=== PATIENT | female | born 1995 | race Caucasian/White ===

== ENCOUNTER 2025-02-08 19:32 | Emergency (ER) | payer OTHER, SELFPAY ==
--- OUTSIDE RECORDS SUMMARY | 2012-12-15 04:00 | XMS_ITS | Continuity of Care Document ---
Author Organization [facility] Address [address] [place] [address] Phone Care Team Providers Care Director Mission Name Role Phone Nicolás Kothari DMD Unavailable Unavailable Allergies, Adverse Reactions, Alerts Substance Reaction Status Criticality No Known allergies Medications Medication Instructions Dosage Dose Quantity Effective Dates (start - stop) Status Indication Fill Status Comments Singulair 10 mg tablet take 1 tablet (10MG) by oral route every day in the evening 10 MG 1 tablet 3 - Active prednisone 10 mg tablet take 1 tablet (10MG) by oral route every day for 2 days then half tablet daily for 5 days and discontinue 10 MG 1 tablet 3 - Active Seasonique 0.15 mg-30 mcg (84)/10 mcg(7) tablets,3 month dose pack take 1 tablet by oral route every day 10 MG 1 tablet 3 - Active ProAir HFA 90 mcg/actuatio n Aerosol Inhaler inhale 2 puff by inhalation route every 4 - 6 hours as needed 10 MG 1 tablet 2 - Active Procedures Procedure Date Prophylaxis Child Topical Application Of Flouride 013 Advance Directives Directive Yes / No Effective Date File Name No Information Encounters Encounter Description Practice Location Reason(s) For Visit Diagnoses Date Provider Encounter Disposition [facility], [address], [place], [place], [address], [place] tel:[phone] [facility] Dental examination 3 Taye Monzon. [address], [place], [place], [address], [place]. tel:[phone] [facility]ly [facility], [address], [place], [place], [address], [place] tel:[phone] [facility] Sob (chief complaint) BOM (bilateral otitis media)Asthmat ic bronchitis 3 [facility] Kavya. [address] [place], [address], [place]. tel:[phone] [facility], [address], [place], [place], [address], [place] tel:[phone] [facility] go over ct of head (chief complaint) HeadacheHealt hcare maintenance 3 No Information [facility], [address], [place], [place], [address], [place] tel:[phone] [facility] c/o migraines (chief complaint) Worsening headaches 3 No Information [facility], [address], [place], [place], [address], [place] tel:[phone] [facility] check up and refills (chief complaint) No Information 3 [facility] [address] [place], [address], [place]. tel:[phone] [facility], [address], [place], [place], [address], [place] tel:[phone] [facility] Dental examination 3 No Information [facility], [address], [place], [place], [address], [place] tel:[phone] [facility] No Information 2 Danial Izquierdo. [address], [place], [address], [place]. tel:[phone] [facility], [address], [place], [place], [address], [place] tel:[phone] [facility] No Information 2 Danial Izquierdo. [address], [place], [address], [place]. tel:[phone] [facility], [address], [place], [place], [address], [place] tel:[phone] [facility] No Information 2 Renato Guzmán. [address], [place], [place], [address], [place]. tel:[phone] [facility], [address], [place], [place], [address], [place] tel:[phone] [facility] No Information 2 Renato Guzmán. [address], [place], [place], [address], [place]. tel:[phone] [facility], [address], [place], [place], [address], [place] tel:[phone] [facility] No Information 1 Dilley Advent. [address], [place], [place], [address], [place]. tel:[phone] [place] [address] [facility], [address], [place], [place], [address], [place] tel:[phone] [facility] No Information 0 1 Dilley Advent. [address], [place], [place], [address], [place]. tel:[phone] [facility], [address], [place], [place], [address], [place] tel:[phone] [facility] No Information 1 Dilley Advent. [address], [place], [place], [address], [place]. tel:[phone] [facility], [address], [place], [place], [address], [place] tel:[phone] [facility] No Information Sep-0 8- 1 Billy Advent. [address], [place], [place], [address], [place]. tel:[phone] [place] [address] [facility], [address], [place], [address], [place] tel:[phone] [facility] No Information 1 8 1 Billy Advent. [address], [place], [place], [address], [place]. tel:[phone] [place] [address] [facility], [address], [place], [place], [address], [place] tel:[phone] [facility] No Information 0 1 Dilley Advent. [address], [place], [place], [address], [place]. tel:[phone] [place] [address] & [facility], [address], [place], [address], [place] tel:[phone] [facility] No Information 0 -201 1 Billy Advent. [address], [place], [place], [address], [place]. tel:[phone] [place] [address] [facility], [address], [place], [address], [place] tel:[phone] [facility] No Information 1 Dilley Advent. [address], [place], [place], [address], [place]. tel:[phone] [place] [address] [facility], [address], [place], [address], [place] tel:[phone] [facility] No Information Apr-2 2201 1 Billy Advent. [address], [place], [place], [address], [place]. tel:[phone] [place] [address] & [facility], [address], [place], [place], [address], [place] tel:[phone] [facility] No Information 0 No Information [facility], [address], [place], [place], [address], tel:[phone] [facility] No Information 0 Billy Cui. [address], [place], [place], [address], [place]. tel:[phone] [facility], [address], [place], [place], [address], tel:[phone] [facility] No Information 0 No Information [facility], [address], [place], [place], [address], tel:[phone] [facility] No Information 0 Billy Cui. [address], [place], [place], [address], [place]. tel:[phone] [facility] [employer], [address], [place], [place], [address], [place] tel:[phone] [facility] No Information 0 Taye Monzon. [address], [place], [place], [address], [place]. tel:[phone] Family History Family Member Type Diagnosis Age At Onset Mother Problem (finding) Obesity Payers Payer name Insurance type Identifiers Authorization(s) Com dotty Velasquez CI yoni ID: [id number] Name: Coverage Status Eligibility Check on: UnknownRelationship to Subscriber: selfPayer Address: [address] [place] [address], [id number], [facility] Phone: [phone] Social History Type Description Quantity Date Captured Comments Sex Female Smoking Status No Information Current Gender Female (finding) Chief Complaint And Reason For Visit No Information Plan Of Treatment Date Type Action Status Referral Ordered: CT HEAD/BRAIN W/O DYE Appointment date/timeframe: 05/21/2012 ordered History Of Present Illness Encounter Date Complaint History Of Prese nt Illness Sob nausea/ prod cou gh with yellow secretions, chest congestion, burning feeling in chest. X's 1 week. mother DX with pneumonia. go over ct of head CT head krystin l.Headaches better with naproxen.No other complaints. c/o migraines states migraines always on left side of head,trauma 2wks ago. was hit in the head with a basketball,denies any LOC.No other motor or sensory deficits.Has frequent left sided temporal headaches,No visual disturbances. check up and refills See scanned note for this date as computer not up until 430p.m. Functional Status Date Description Comments No Information Instructions Date Instruction Additional Infor mation If severely SOB and meds not helping, to ER for evaluation and treatment. Related to Asthmatic bronchitis Beta agonist inhaler as prescrib ed Related to Asthmatic bronchitis Weaning dose of prednisone as pr escribed Related to Asthmatic bronchitis Assessments Type Assessment Date No Information
--- OUTSIDE RECORDS SUMMARY | 2025-02-08 19:38 | XMS_ITS | Encounter Summary ---
Author Organization [facility] Address [address] [place] [address] Care Team Providers Care Food Preparation Kitchen Aide Name Role Phone Gibson Lopez MD Primary Care Provider Reason for Visit * Reason Comments Med Refill Encounter Details Date Type Department Care Team (Late st Contact Info) Description 05/24/2024 Refill [facility] Family Medicine [address] [place] [phone] Gibson Lopez MD [address] [place], [place] [id number] Iron deficiency anemia, unspecified iron deficiency anemia type; Low vitamin D level Social History Tobacco Use Types Packs/Day Years Used Date Smoking Tobacco: Never Smokeless Tobacco: Never Alcohol Use Standard Drinks/Week Comments Yes 0 (1 standard drink = 0.6 oz pur e alcohol) occasionally PHQ-2 Answer Date Recorded Patient Health Questionnaire-2 Score 0 03/24/2023 Comments No Sex and Gender Information Value Date Recorded Sex Assigned at Not on file Legal Sex Female 11:28 PM CDT Gender Identity Not on file Sexual Orientation Not on file documented as of this encounter Miscellaneous Notes * Telephone Encounter - Di Navarro RN - 05/25/2024 11:40 AM CDT Awaiting clarification on Vit D dosage from pt; юлия msg sent and read. documented in this encounter Plan of Treatment Not on file documented as of this encounter Visit Diagnoses Diagnosis Iron deficiency anemia, unspecified iron deficiency anemia type Low vitamin D level documented in this encounter Care Teams Food Preparation Kitchen Aide Relationship Specialty Start Date End Date Gibson Lopez MD [address] [place] [address] PCP - General Pediatrics 04/05/24 documented as of this encounter
--- OUTSIDE RECORDS SUMMARY | 2025-02-08 19:38 | XMS_ITS | Encounter Summary ---
Author Organization [facility] Address [address] [place] [address] Care Team Providers Care Electro Optics Engineer Name Role Phone Gibson Lopez MD Primary Care Provider Encounter Details Date Type Department Care Team (Late st Contact Info) Description 11/08/2024 Orders Only [facility] Family Medicine [address] [place] [phone] Gibson Lopez MD [address] [place], [place] [id number] Adult ADHD; Mild intermittent asthma without complication Social History Tobacco Use Types Packs/Day Years [...] on file documented as of this encounter Plan of Treatment Not on file documented as of this encounter Visit Diagnoses Diagnosis Adult ADHD Attention deficit disorder with hyperactivity Mild intermittent asthma without complication documented in this encounter Care Teams Electro Optics Engineer Relationship Specialty Start Date End Date Gibson Lopez MD [address] [place], [place] [address] PCP - General Pediatrics 04/05/24 documented as of this encounter
--- OUTSIDE RECORDS SUMMARY | 2025-02-08 19:38 | XMS_ITS | Encounter Summary ---
Author Organization [facility] Address [address] [place] [address] Care Team Providers Care Electroneurodiagnostic Technologist Name Role Phone Gibson Lopez MD Primary Care Provider Encounter Details Date Type Department Care Team (Late st Contact Info) Description 03/05/2024 Orders Only [facility] Family Medicine [address] [place] [phone] Gibson Lopez MD [address] [place] [address] Social History Tobacco Use Types Packs/Day Years [...] documented as of this encounter Visit Diagnoses Not on filedocumented in this encounter Additional Health Concerns Infection Onset Date Last Indicated Resolved Time R/O COVID-19 04/05/2024 04/05/2024 04/05/2024 1:14 PM GAS LINE SERVICER Streptococcal disease (group A), Pharyngitis 04/05/2024 04/05/2024 04/19/2024 12:21 AM GAS LINE SERVICER documented as of this encounter Care Teams Electroneurodiagnostic Technologist Relationship Specialty Start Date End Date Gibson Lopez MD [address] [place] [id number] PCP - General Pediatrics 04/05/24 documented as of this encounter
--- OUTSIDE RECORDS SUMMARY | 2025-02-08 19:38 | XMS_ITS | Encounter Summary ---
Author Organization [facility] Address [address] [place] [address] Care Team Providers Care Umbrella Finisher Name Role Phone Gibson Lopez MD Primary Care Provider Encounter Details Date Type Department Care Team (Late st Contact Info) Description 07/08/2024 Orders Only [facility] Family Medicine [address] [place] [phone] Gibson Lopez MD [address] [place], [place] [address] Adult ADHD Social History Tobacco Use Types Packs/Day Years [...] Adult ADHD Attention deficit disorder with hyperactivity documented in this encounter Care Teams Umbrella Finisher Relationship Specialty Start Date End Date Gibson Lopez MD [address] [place], [place] [address] PCP - General Pediatrics 04/05/24 documented as of this encounter
--- OUTSIDE RECORDS SUMMARY | 2025-02-08 19:38 | XMS_ITS | Encounter Summary ---
Author Organization [facility] Address [address] [place] [address] Care Team Providers Care Loan Officer Name Role Phone Gibson Lopez MD Primary Care Provider Encounter Details Date Type Department Care Team (Late st Contact Info) Description 09/16/2024 Orders Only [facility] Family Medicine [address] [place] [phone] Gibson Lopez MD [address] [place], [place] [address] Adult ADHD Social History Tobacco Use Types [...] hyperactivity documented in this encounter Care Teams Loan Officer Relationship Specialty Start Date End Date Gibson Lopez MD [address] [place], [place] [address] PCP - General Pediatrics 04/05/24 documented as of this encounter
--- OUTSIDE RECORDS SUMMARY | 2025-02-08 19:38 | XMS_ITS | Encounter Summary ---
Author Organization [facility] Address [address] [place] [address] Care Team Providers Care Manager Delivery Name Role Phone Gibson Lopez MD Primary Care Provider Encounter Details Date Type Department Care Team (Late st Contact Info) Description 05/26/2024 Orders Only [facility] Family Medicine [address] [place] [phone] Gibson Lopez MD [address] [place], [place] [address] Hypovitaminosis D Social History Tobacco Use Types Packs/Day Years [...] as of this encounter Visit Diagnoses Diagnosis Hypovitaminosis D Unspecified vitamin D deficiency documented in this encounter Care Teams Manager Delivery Relationship Specialty Start Date End Date Gibson Lopez MD [address] [place], [place] [address] PCP - General Pediatrics 04/05/24 documented as of this encounter
--- OUTSIDE RECORDS SUMMARY | 2025-02-08 19:38 | XMS_ITS | Encounter Summary ---
Author Organization [facility] Address [address] [place] [address] Care Team Providers Care Needle Loom Operator Helper Name Role Phone Gibson Lopez MD Primary Care Provider Encounter Details Date Type Department Care Team (Late st Contact Info) Description 08/09/2016 Orders Only [facility] Family Medicine [address] [place] [address] Angeli Schwartz LPN Social History Tobacco Use Types Packs/Day Years Used Date Smoking Tobacco: Never Comments Unknown Sex and Gender Information Value Date Recorded [...] Date Last Indicated Resolved Time R/O COVID-19 04/27/2020 04/29/2020 04/27/2020 2:06 PM INDUSTRIAL COMMERCIAL GROUNDSKEEPER R/O COVID-19 11/01/2020 11/01/2020 11/17/2020 12:0 2 PM CDT R/O COVID-19 12/01/2020 12/01/2020 12/02/2020 12:1 7 PM CDT R/O COVID-19 12/08/2020 12/08/2020 12/08/2020 1:15 PM CDT R/O COVID-19 12/15/2020 12/15/2020 12/15/2020 1:35 PM CDT R/O COVID-19 12/22/2020 01/05/2021 01/05/2021 4:45 PM INDUSTRIAL COMMERCIAL GROUNDSKEEPER PreProcedure Screening COVID-19 12/29/2020 12/30/2020 1:02 PM CDT R/O COVID-19 01/11/2021 01/11/2021 01/11/2021 2:55 PM INDUSTRIAL COMMERCIAL GROUNDSKEEPER R/O COVID-19 01/16/2021 01/16/2021 01/16/2021 8:22 PM INDUSTRIAL COMMERCIAL GROUNDSKEEPER R/O COVID-19 01/25/2021 01/25/2021 01/25/2021 6:28 PM INDUSTRIAL COMMERCIAL GROUNDSKEEPER R/O COVID-19 02/01/2021 02/01/2021 02/01/2021 1:27 PM INDUSTRIAL COMMERCIAL GROUNDSKEEPER R/O COVID-19 02/08/2021 02/08/2021 02/08/2021 12:2 1 PM INDUSTRIAL COMMERCIAL GROUNDSKEEPER R/O COVID-19 02/13/2021 02/13/2021 02/13/2021 2:21 PM INDUSTRIAL COMMERCIAL GROUNDSKEEPER R/O COVID-19 02/21/2021 02/21/2021 02/21/2021 11:4 3 AM INDUSTRIAL COMMERCIAL GROUNDSKEEPER COVID-19 02/21/2021 02/21/2021 05/22/2021 12:2 1 AM CDT R/O COVID-19 05/24/2021 05/24/2021 05/24/2021 7:56 PM CDT R/O COVID-19 05/31/2021 05/31/2021 05/31/2021 8:43 PM CDT R/O COVID-19 06/07/2021 06/07/2021 06/07/2021 9:00 PM CDT R/O COVID-19 06/14/2021 06/14/2021 06/14/2021 5:57 PM CDT R/O COVID-19 06/24/2021 06/24/2021 06/25/2021 1:22 AM CDT R/O COVID-19 06/30/2021 06/30/2021 06/30/2021 5:45 PM CDT R/O COVID-19 07/03/2021 07/07/2021 07/08/2021 1:40 AM CDT R/O COVID-19 07/12/2021 07/12/2021 07/12/2021 6:48 PM CDT R/O COVID-19 07/19/2021 07/19/2021 07/19/2021 6:45 PM CDT R/O COVID-19 07/25/2021 07/25/2021 07/25/2021 11:4 1 PM CDT R/O COVID-19 07/29/2021 07/29/2021 07/29/2021 7:13 PM CDT COVID-19 07/29/2021 07/29/2021 10/27/2021 12:2 1 AM CDT COVID-19 12/19/2022 12/19/2022 03/19/2023 12:2 1 AM INDUSTRIAL COMMERCIAL GROUNDSKEEPER R/O COVID-19 04/05/2024 04/05/2024 04/05/2024 1:14 PM INDUSTRIAL COMMERCIAL GROUNDSKEEPER Streptococcal disease (group A), Pharyngitis 04/05/2024 04/05/2024 04/19/2024 12:21 AM INDUSTRIAL COMMERCIAL GROUNDSKEEPER documented as of this encounter Care Teams Needle Loom Operator Helper Relationship Specialty Start Date End Date Gibson Lopez MD [address] [place] [address] PCP - General Pediatrics 04/05/24 documented as of this encounter
--- OUTSIDE RECORDS SUMMARY | 2025-02-08 19:38 | XMS_ITS | Encounter Summary ---
Author Organization [facility] Address [address] [place] [address] Care Team Providers Care Beach Lifeguard Name Role Phone Gibson Lopez MD Primary Care Provider Reason for Referral * Medication Prior Authorization - Closed Specialty Diagnoses / Procedures Referred By Contac t Referred To Contact Diagnoses PTSD (post-traumatic stress disorder) Gibson Lopez MD [address] [place] [address] Phone: tel: fax: Referral ID Status Reason Start Date Expiration Date Visits Re quested Visits Authorized [id number] Closed 1 1 Encounter Details Date Type Department Care Team (Late st Contact Info) Description 12/15/2024 Orders Only [facility] Family Medicine [address] [place] [phone] Gibson Lopez MD [address] [place] [address] Adult ADHD; PTSD (post-traumatic stress disorder) Social History Tobacco Use Types Packs/Day Years [...] Adult ADHD Attention deficit disorder with hyperactivity PTSD (post-traumatic stress disorder) Posttraumatic stress disorder documented in this encounter Care Teams Beach Lifeguard Relationship Specialty Start Date End Date Gibson Lopez MD [address] [place] [address] PCP - General Pediatrics 04/05/24 documented as of this encounter
--- OUTSIDE RECORDS SUMMARY | 2025-02-08 19:38 | XMS_ITS | Encounter Summary ---
Author Organization [facility] Address [address] [place] [address] Care Team Providers Care Hat Renovator Name Role Phone Gibson Lopez MD Primary Care Provider Encounter Details Date Type Department Care Team (Late st Contact Info) Description 06/17/2024 Orders Only [facility] Family Medicine [address] [place] [phone] Gibson Lopez MD [address] [place], [place] [phone] Vertigo (Primary Dx); Adult ADHD Social History Tobacco Use Types [...] as of this encounter Visit Diagnoses Diagnosis Vertigo- Primary Dizziness and giddiness Adult ADHD Attention deficit disorder with hyperactivity documented in this encounter Care Teams Hat Renovator Relationship Specialty Start Date End Date Gibson Lopez MD [address] [place] [address] PCP - General Pediatrics 04/05/24 documented as of this encounter
--- OUTSIDE RECORDS SUMMARY | 2025-02-08 19:38 | XMS_ITS | Encounter Summary ---
Author Organization [facility] althcare Address [address] [place] [address] Care Team Providers Care Roving Tester Laboratory Name Role Phone Gibson Lopez MD Primary Care Provider Encounter Details Date Type Department Care Team (Late st Contact Info) Description 02/19/2024 Orders Only [facility] Family Medicine [address] [place] [address] Gibson Lopez MD [address] [place] [address] Other fatigue (Primary Dx); Iron deficiency anemia, unspecified iron deficiency anemia type; Low vitamin D level; Anxiety Social History Tobacco Use Types Packs/Day Years [...] as of this encounter Plan of Treatment Scheduled Orders Name Type Priority Associated Diagnoses Orde r Schedule Vitamin D 25 Hydroxy Lab Routine Iron deficiency anemia, unspecified iron deficiency anemia type Low vitamin D level 1 Occurrences starting 02/24/2024 until 02/23/2025 documented as of this encounter Results * Ferritin (04/09/2024 10:48 AM COOPERAGE SHOP SUPERVISOR) Ferritin 47 11 - 307 ng/mL 04/09/2024 7:50 PM COOPERAGE SHOP SUPERVISOR [facility] Blood Venous blood specimen / Unknown Venipuncture / Unknown 04/09/2024 10:48 AM COOPERAGE SHOP SUPERVISOR 04/09/2024 10:48 AM COOPERAGE SHOP SUPERVISOR Gibson Lopez MD LAB BLOOD ORDERABLES F inal Result [address] [address] * (ABNORMAL) Vitamin D 25 Hydroxy (02/23/2024 8:27 AM COOPERAGE SHOP SUPERVISOR) Vitamin D 25-Hydroxy 19.9(L) 30.0 - 100.0 ng/mL 02/23/2024 8:03 PM [facility] Blood Venous blood specimen / Unknown Venipuncture / Unknown 02/23/2024 8:27 AM COOPERAGE SHOP SUPERVISOR 02/23/2024 8:27 AM COOPERAGE SHOP SUPERVISOR Gibson Lopez MD LAB BLOOD ORDERABLES F inal Result [address] [address] * Ferritin (02/23/2024 8:27 AM COOPERAGE SHOP SUPERVISOR) Ferritin 19 11 - 307 ng/mL 02/23/2024 8:16 PM COOPERAGE SHOP SUPERVISOR [facility] Blood Venous blood specimen / Unknown Venipuncture / Unknown 02/23/2024 8:27 AM COOPERAGE SHOP SUPERVISOR 02/23/2024 8:27 AM COOPERAGE SHOP SUPERVISOR Gibson Lopez MD LAB BLOOD ORDERABLES F inal Result [address] [address] * TSH Reflex to FT4 (02/23/2024 8:27 AM COOPERAGE SHOP SUPERVISOR) TSH 1.980 0.358 - 3.740 uIU/mL 02/23/2024 11:24 AM COOPERAGE SHOP SUPERVISOR [facility] Blood Venous blood specimen / Unknown Venipuncture / Unknown 02/23/2024 8:27 AM COOPERAGE SHOP SUPERVISOR 02/23/2024 8:27 AM COOPERAGE SHOP SUPERVISOR Gibson Lopez MD LAB BLOOD ORDERABLES F inal Result [facility] [address] [place] [address], * Vitamin B12 (02/23/2024 8:27 AM COOPERAGE SHOP SUPERVISOR) Pathologist [facility] Vitamin B12 633 180 - 914 pg/mL 02/23/2024 8:20 PM [facility] Blood Venous blood specimen / Unknown Venipuncture / Unknown 02/23/2024 8:27 AM COOPERAGE SHOP SUPERVISOR 02/23/2024 8:27 AM COOPERAGE SHOP SUPERVISOR Gibson Lopez MD LAB BLOOD ORDERABLES F inal Result Performing Organization Address City/[facility]/ZIP Co de Phone Number [facility] [address] [place] [address] * CRP (02/23/2024 8:27 AM COOPERAGE SHOP SUPERVISOR) Pathologist [facility] C Reactive Prot <5.0 <5.0 mg/L 7:15 PM [facility] Blood Venous blood specimen / Unknown Venipuncture / Unknown 02/23/2024 8:27 AM COOPERAGE SHOP SUPERVISOR 02/23/2024 8:27 AM COOPERAGE SHOP SUPERVISOR Gibson Lopez MD LAB BLOOD ORDERABLES F inal Result [address] [address] documented in this encounter Visit Diagnoses Diagnosis Other fatigue- Primary Iron deficiency anemia, unspecified iron deficiency anemia type Low vitamin D level Anxiety Anxiety state, unspecified documented in this encounter Additional Health Concerns Infection Onset Date Last Indicated Resolved Time R/O COVID-19 04/05/2024 04/05/2024 04/05/2024 1:14 PM COOPERAGE SHOP SUPERVISOR Streptococcal disease (group A), Pharyngitis 04/05/2024 04/05/2024 04/19/2024 12:21 AM COOPERAGE SHOP SUPERVISOR documented as of this encounter Care Teams Roving Tester Laboratory Relationship Specialty Start Date End Date Gibson Lopez MD [address] [place] [address] PCP - General Pediatrics 04/05/24 documented as of this encounter
--- OUTSIDE RECORDS SUMMARY | 2025-02-08 19:38 | XMS_ITS | Encounter Summary ---
Author Organization [facility] Address [address] [place] [address] Care Team Providers Care Client Analyst Name Role Phone Unavailable Primary Care Provider Unavailabl e Encounter Details Date Type Department Care Team (Late st Contact Info) Description 01/25/2025 Results Follow-Up [facility] [address] [place] [address] Naty Quintana FNP-C [address] [place] [address] URINE CULTURE Social History Tobacco Use Types Packs/Day Years Used Date Smoking Tobacco: Never Passive Smoke Exposure: Never Smokeless Tobacco: Never Comments Unknown Sex and Gender Information Value Date Recorded Sex Assigned at Female 10/08/2024 1:23 PM CDT Legal Sex Female 11:20 PM CDT Gender Identity Not on file Sexual Orientation Not on file documented as of this encounter Miscellaneous Notes * Result Encounter Note - Dariela Gutierres RT - 01/27/2025 7:48 AM CARGO ROUTER PT notified by phone O ROUTER * Result Encounter Note - Naty Quintana FNP-C - 01/26/2025 8:16 AM CST Patients urine culture came back with no primary bacteria present, urogenital harsh present, which is normal. Recommend follow up if symptoms persist or worsen. O ROUTER documented in this encounter Plan of Treatment Not on file documented as of this encounter Visit Diagnoses Not on filedocumented in this encounter
--- OUTSIDE RECORDS SUMMARY | 2025-02-08 19:38 | XMS_ITS | Clinical Summary ---
Author Organization [facility] Address [address] [place] [address] Care Team Providers Care Rn Visiting Name Role Phone Unavailable Primary Care Provider Unavailabl e Allergies No known active allergies Medications albuterol 108 (90 Base) MCG/ACT inhaler INHALE 2 PUFFS EVERY 4 HOURS NEEDED FOR WHEEZING OR SHORTNESS OF BREATH 4 Active budesonide-form oterol (SYMBICORT) 160-4.5 MCG/ACT inhaler Inhale 2 puffs by mouth 4 Active Cholecalciferol 10 MCG (400 UNIT) CAPS Take 1 tablet by mouth Nightly 5 Active Active Problems Problem Noted Date Diagnosed Date Adult ADHD 08/26/2024 Syncope 04/09/2024 PTSD (post-traumatic stress disorder) 11/26/2023 Anxiety 08/18/2023 Obesity 05/22/2023 Acne vulgaris 08/16/2016 History of gestational hypertension 02/10/2015 Asthma 05/12/2014 Resolved Problems Problem Noted Date Diagnosed Date Resolved Date Acute low back pain 08/26/2024 09/27/19 Acute pain of left knee 08/26/2024 08/0 04/2024 Sebaceous cyst 11/26/2023 09/26/2024 Supervision of normal 12/30/2022 09/26/2024 Encounters Date Type Department Care Team Description 01/25/2025 Results Follow-Up [facility] [address] [place] [phone] Naty Quintana FNP-C URINE CULTURE 01/22/2025 2:45 PM LIME TRIMMER Lab/X-Ray Only [facility] [address] [place] [phone] Georgina Nolasco PA Urinary frequency (Primary Dx) 01/22/2025 2:30 PM LIME TRIMMER Office Visit [facility] [address] [place] [address] Georgina Nolasco PA Urinary frequency (Primary Dx); Depression screening negative from Last 3 Months Immunizations Immunization Administration Dates Next Due DTaP 09/25/1998, 5,1994,1994 Hepatitis B, Ped/Adolescent 1994, 5,1994 HiB 1994,1994,1994 Influenza Quadrivalent, Pres ervative Free 03/24/2023 Influenza Split Virus 11/05/2024 Influenza Split Virus Preser vative Free 11/17/2017 Influenza, Quadrivalent 12/01/2018 MMR 09/25/1998,07/24/1995 OPV 09/25/1998, 5,1994,1994 Tdap 12/10/2022,08/18/2017 Social History Tobacco Use Types Packs/Day Years Used Date Smoking Tobacco: Never Passive Smoke Exposure: Never Smokeless Tobacco: Never Tobacco Cessation:Counseling Given: Yes Comments Unknown Sex and Gender Information Value Date Recorded Sex Assigned at Female 10/08/2024 1:23 PM CDT Legal Sex Female 11:20 PM CDT Gender Identity Not on file Sexual Orientation Not on file Last Filed Vital Signs Vital Sign Reading Time Taken Comments Blood Pressure 127/83 01/22/2025 2:38 PM LIME TRIMMER Pulse 80 01/22/2025 2:38 PM LIME TRIMMER Temperature 36.4 C (97.5 F) 01/22/2025 2:38 PM LIME TRIMMER Respiratory Rate 18 01/22/2025 2:38 PM LIME TRIMMER Oxygen Saturation 98% 01/22/2025 2:38 PM LIME TRIMMER Inhaled Oxygen Concentration - - Weight 72.6 kg (160 lb 1.6 oz) 01/22/2025 2:38 P M LIME TRIMMER Height 160 cm (5' 3) 01/22/2025 2:38 PM LIME TRIMMER Body Mass Index 28.36 01/22/2025 2:38 PM LIME TRIMMER Plan of Treatment Health Maintenance Due Date Last Done Comments HIV Screening 1994 Hepatitis C Screening ages 18 to 79 once 1994 Varicella Vaccine (1 of 2 - 13+ 2-dose series) 2007 HPV VACCINES (1 - 3-dose series) 2009 BMI Above/Below Normal Parameters 2012 Pneumococcal Vaccine: Peds to 50 & At-Risk Patients (1 of 2 - PCV) 2013 CERVICAL CANCER SCREENING 2015 YEARLY WELLNESS EXAM 08/13/2024 08/14/2023, 10/23/2020, 09/30/2019, Additional history exists COVID-19 Immunization () 10/25/2024 DEPRESSION SCREENING 01/22/2026 01/22/2025 ADULT TETANUS 12/10/2032 12/10/2022, 08/18/2017 Zoster Vaccine (Recombinant Vaccine) (1 of 2) 2044 HEPATITIS B VACCINES Completed 1994, 1994, 1994 HIB VACCINES Aged Out 1994, 06/25, 1994 No longer eligible based on patient's age to complete this topic MMR VACCINES Completed 09/25/1998, 07/24/1995 Influenza Vaccine Completed 11/05/2024, , 12/01/2018, Additional history exists HEPATITIS A VACCINES Aged Out No long er eligible based on patient's age to complete this topic IPV VACCINES Aged Out No longer eligi ble based on patient's age to complete this topic MENINGOCOCCAL VACCINE Aged Out No jimmie hernandez eligible based on patient's age to complete this topic Meningococcal B Vaccine Aged Out No l onger eligible based on patient's age to complete this topic ROTAVIRUS VACCINES Aged Out No longer eligible based on patient's age to complete this topic Procedures Procedure Name Priority Date/Time Associated Diagnosis Comments POCT URINALYSIS DIPSTICK (AUTOMATED) Routine 01/22/2025 2:55 PM LIME TRIMMER Urinary frequency URINE CULTURE Routine 01/22/2025 2:43 PM LIME TRIMMER Urinary frequency from Last 3 Months Results * POCT URINALYSIS DIPSTICK (AUTOMATED) (01/22/2025 2:55 PM LIME TRIMMER) Leukocyte Esterase UA Negative cell/hpf [facility] Nitrite UA Negative mg/dL [facility] Urobilinogen UA 0.2 EU/dL [facility] Protein UA Negative mg/dL [facility] pH UA 7.0 pH [facility] Blood UA Negative Negative, Trace, Small, Moderate, 15 mg/dL (1+), 40 mg/dL (2+), 80 mg d/L (3+), Small (1+), Moderate (2+), Large (3+) mg/dL [facility] Specific [place] UA 1.025 [facility] Ketones UA Negative mg/dL [facility] Bilirubin UA Negative Negative, Small, Moderate, Large mg/dL [facility] Glucose UA Negative mg/dL [facility] Color Fluid Yellow [facility] Clarity Fluid Turbid [facility] 01/22/2025 2:55 PM LIME TRIMMER Georgina RAMOS POINT OF CARE TEST ORDERABLES Fi nal Result Performing Organization Address City/[facility] [address]/ZIP Co de Phone Number [facility] [address] [place] [address], [facility] * URINE CULTURE (01/22/2025 2:43 PM LIME TRIMMER) Specimen Type URINE [facility] Special Handling NONE [facility] Culture Result 10,000 TO <100,000 COL/ML NORMAL UROGENITAL SANTOS [facility] Status 01/25/2025 FINAL [facility] Urine URINE SPECIMEN / Unknown 01/22/2025 2:43 PM LIME TRIMMER 01/23/2025 11:25 AM LIME TRIMMER Georgina RAMOS URINE ORDERABLES Final Result [facility] [address] [place], [place] [address] [phone] from Last 3 Months Insurance [facility]
--- OUTSIDE RECORDS SUMMARY | 2025-02-08 19:38 | XMS_ITS | Encounter Summary ---
Author Organization [facility]care Address [address] [place] [address] Care Team Providers Care Sound Effects Person Name Role Phone Gibson Lopez MD Primary Care Provider Encounter Details Date Type Department Care Team (Late st Contact Info) Description 08/13/2024 Orders Only [facility] Family Medicine [address] [place] [phone] Gibson Lopez MD [address] [place], [place] [phone] Adult ADHD Social History Tobacco Use Types [...] hyperactivity documented in this encounter Care Teams Sound Effects Person Relationship Specialty Start Date End Date Gibson Lopez MD [address] [place], [place] [address] PCP - General Pediatrics 04/05/24 documented as of this encounter
--- OUTSIDE RECORDS SUMMARY | 2025-02-08 19:39 | XMS_ITS | Encounter Summary ---
Author Organization [facility] al[facility]care Address [address] [place] [address] Care Team Providers Care Magnet Maker Name Role Phone Gibson Lopez MD Primary Care Provider Encounter Details Date Type Department Care Team (Late st Contact Info) Description 07/03/2021 Orders Only [facility] [address] [place] [address] Shelia Rosa, CABIN SUPERVISOR [address] [place] [address] Screening for viral disease (Primary Dx) Social History Tobacco Use Types Packs/Day Years Used Date Smoking Tobacco: Never Smokeless Tobacco: Never Alcohol Use Standard Drinks/Week Comments Yes 0 (1 standard drink = 0.6 oz pur e alcohol) occasionally Comments No Sex and Gender Information Value Date Recorded Sex Assigned at Not on file Legal Sex Female 11:28 PM CDT Gender Identity Not on file Sexual Orientation Not on file documented as of this encounter Plan of Treatment Not on file documented as of this encounter Results * [facility] 2019 NOVEL Coronavirus SARS-Cov-2 by NAAT (16 Hour, In-House) (07/12/2021 7:49 AM CDT) SARS-CoV-2 by NAAT Negative Negative 07/12/2021 6:48 PM CDT [facility] Swab (specimen) Both anterior nares / Unknown Non-blood Collection / Unknown 07/12/2021 7:49 AM CDT 07/12/2021 1:10 PM CDT [facility] - 07/12/2021 6:48 PM CDT This sample has been tested using [employer] [place] NAAT and has been authorized by FDA under an Emergency Use Authorization (EUA). This test is only authorized for the duration of the declaration that circumstances exist justifying the authorization of the emergency use of in vitro diagnostic tests for detection of SARS-CoV-2 virus and/or diagnosis of COVID-19 infection under section 564 (b) (1) of the Act, 21 U.S.C. 360bbb-3(b) (1), unless the authorization is terminated or revoked sooner. When diagnostic testing is negative, the possibility of a false negative result should be considered in the context of a patient's recent exposures and the presence of clinical signs and symptoms consistent with COVID-19. An individual without symptoms of COVID-19 and who is not shedding SARS-CoV-2 virus would expect to have a negative (not detected) result in this assay. us Shelia Rosa NP LAB MICROBIOLOGY - GENERA L ORDERABLES Final Result [address] [address] * [facility] 2019 NOVEL Coronavirus SARS-Cov-2 by NAAT (16 Hour, In-House) (07/07/2021 10:10 AM CDT) Pathologist [facility] SARS-CoV-2 by NAAT Negative Negative 07/08/2021 1:40 AM CDT [facility] Swab (specimen) Both anterior nares / Unknown Non-blood Collection / Unknown 07/07/2021 10:10 AM CDT 07/07/2021 3:58 PM CDT [facility] - 07/08/2021 1:40 AM CDT This sample has been tested using [employer] [place] NAAT and has been authorized by FDA under an Emergency Use Authorization (EUA). This test is only authorized for the duration of the declaration that circumstances exist justifying the authorization of the emergency use of in vitro diagnostic tests for detection of SARS-CoV-2 virus and/or diagnosis of COVID-19 infection under section 564 (b) (1) of the Act, 21 U.S.C. 360bbb-3(b) (1), unless the authorization is terminated or revoked sooner. When diagnostic testing is negative, the possibility of a false negative result should be considered in the context of a patient's recent exposures and the presence of clinical signs and symptoms consistent with COVID-19. An individual without symptoms of COVID-19 and who is not shedding SARS-CoV-2 virus would expect to have a negative (not detected) result in this assay. us Shelia Rosa NP LAB MICROBIOLOGY - [facility] L ORDERABLES Final Result Performing Organization Address City/State/[facility] [place] [address] documented in this encounter Visit Diagnoses Diagnosis Screening for viral disease- Primary Special screening examination for unspecified viral disease documented in this encounter Additional Health Concerns Infection Onset Date Last Indicated Resolved Time R/O COVID-19 07/03/2021 07/07/2021 07/08/2021 1:40 AM CDT R/O COVID-19 07/12/2021 07/12/2021 07/12/2021 6:48 PM CDT R/O COVID-19 07/19/2021 07/19/2021 07/19/2021 6:45 PM CDT R/O COVID-19 07/25/2021 07/25/2021 07/25/2021 11:4 1 PM CDT R/O COVID-19 07/29/2021 07/29/2021 07/29/2021 7:13 PM CDT COVID-19 07/29/2021 07/29/2021 10/27/2021 12:2 1 AM CDT COVID-19 12/19/2022 12/19/2022 03/19/2023 12:2 1 AM BLACK BELT R/O COVID-19 04/05/2024 04/05/2024 04/05/2024 1:14 PM BLACK BELT Streptococcal disease (group A), Pharyngitis 04/05/2024 04/05/2024 04/19/2024 12:21 AM BLACK BELT documented as of this encounter Care Teams Magnet Maker Relationship Specialty Start Date End Date Gibson Lopez MD [address] [place] [address] PCP - General Pediatrics 04/05/24 documented as of this encounter
--- OUTSIDE RECORDS SUMMARY | 2025-02-08 19:39 | XMS_ITS | Encounter Summary ---
Author Organization [facility]care Address [address] [place] [address] Care Team Providers Care Harbormaster Name Role Phone Gibson Lopez MD Primary Care Provider Encounter Details Date Type Department Care Team (Late st Contact Info) Description 01/11/2021 Orders Only [facility] Mobile [address] [place] [address] Nhan Orellana, RACHEL [address] [place] [address] Screening for viral disease (Primary Dx) Social [...] as of this encounter Results * Employee [employer] 2019 NOVEL Coronavirus SARS-Cov-2 by NAAT (16 Hour, In-House) (01/16/2021 7:50 AM WOMEN'S LACROSSE COACH) SARS-CoV-2 by NAAT Negative Negative 01/16/2021 8:22 PM WOMEN'S LACROSSE COACH [facility] Swab (specimen) Both anterior nares / Unknown Non-blood Collection / Unknown 01/16/2021 7:50 AM WOMEN'S LACROSSE COACH 01/16/2021 10:55 AM WOMEN'S LACROSSE COACH [facility] - 01/16/2021 8:22 PM WOMEN'S LACROSSE COACH This sample has been tested using [employer] Get Appro[employer] NAAT and has been authorized by FDA [...] negative (not detected) result in this assay. Nhan RAMOS LAB MICROBIOLOGY - GENERAL [place] [address] * Employee [employer] 2019 NOVEL Coronavirus SARS-Cov-2 by NAAT (16 Hour, In-House) (01/11/2021 7:34 AM WOMEN'S LACROSSE COACH) [facility] SARS-CoV-2 by NAAT Negative Negative 01/11/2021 2:55 PM [facility] Swab (specimen) Both anterior nares / Unknown Non-blood Collection / Unknown 01/11/2021 7:34 AM WOMEN'S LACROSSE COACH 01/11/2021 9:08 AM [facility] - 01/11/2021 2:55 PM [facility] This sample has been tested using [employer] To Get Approved [employer] [place] NAAT and has been authorized by FDA [...] (not detected) result in this assay. us Nhan RAMOS LAB MICROBIOLOGY - GENERAL ORDERABLES Final Result Performing Organization Address City/State/[facility] Co de Phone Number [address] [address] documented in this encounter Visit Diagnoses Diagnosis Screening for viral disease- Primary Special screening examination for unspecified viral disease documented in this encounter Additional Health Concerns Infection Onset Date Last Indicated Resolved Time R/O COVID-19 01/11/2021 01/11/2021 01/11/2021 2:55 PM WOMEN'S LACROSSE COACH R/O COVID-19 01/16/2021 01/16/2021 01/16/2021 8:22 PM WOMEN'S LACROSSE COACH R/O COVID-19 01/25/2021 01/25/2021 01/25/2021 6:28 PM WOMEN'S LACROSSE COACH R/O COVID-19 02/01/2021 02/01/2021 02/01/2021 1:27 PM WOMEN'S LACROSSE COACH R/O COVID-19 02/08/2021 02/08/2021 02/08/2021 12:2 1 PM WOMEN'S LACROSSE COACH R/O COVID-19 02/13/2021 02/13/2021 02/13/2021 2:21 PM WOMEN'S LACROSSE COACH R/O COVID-19 02/21/2021 02/21/2021 02/21/2021 11:4 3 AM WOMEN'S LACROSSE COACH COVID-19 02/21/2021 02/21/2021 05/22/2021 12:2 1 AM [...] COVID-19 12/19/2022 12/19/2022 03/19/2023 12:2 1 AM WOMEN'S LACROSSE COACH R/O COVID-19 04/05/2024 04/05/2024 04/05/2024 1:14 PM WOMEN'S LACROSSE COACH Streptococcal disease (group A), Pharyngitis 04/05/2024 04/05/2024 04/19/2024 12:21 AM WOMEN'S LACROSSE COACH documented as of this encounter Care Teams Harbormaster Relationship Specialty Start Date End Date Gibson Lopez MD [address] [place] [address] PCP - General Pediatrics 04/05/24 documented as of this encounter
--- OUTSIDE RECORDS SUMMARY | 2025-02-08 19:39 | XMS_ITS | Encounter Summary ---
Author Organization [facility]care Address [address] [place] [address] Care Team Providers Care Information Services Manager Name Role Phone Gibson Lopez MD Primary Care Provider Encounter Details Date Type Department Care Team (Late st Contact Info) Description 09/08/2020 Orders Only [facility] Internal Medicine and Pediatrics [address] [place] [phone] Gibson Lopez MD [address] [place] [address] Anxiety (Primary Dx) Social History Tobacco Use Types [...] as of this encounter Visit Diagnoses Diagnosis Anxiety- Primary Anxiety state, unspecified documented in this encounter Additional Health Concerns Infection Onset Date Last Indicated Resolved Time R/O COVID-19 11/01/2020 11/01/2020 11/17/2020 12:0 2 PM CDT R/O COVID-19 12/01/2020 12/01/2020 12/02/2020 12:1 7 PM CDT R/O COVID-19 12/08/2020 12/08/2020 12/08/2020 1:15 PM CDT R/O COVID-19 12/15/2020 12/15/2020 12/15/2020 1:35 PM CDT R/O COVID-19 12/22/2020 01/05/2021 01/05/2021 4:45 PM RAILROAD CAR INSPECTOR PreProcedure Screening COVID-19 12/29/2020 12/30/2020 1:02 PM CDT R/O COVID-19 01/11/2021 01/11/2021 01/11/2021 2:55 PM RAILROAD CAR INSPECTOR R/O COVID-19 01/16/2021 01/16/2021 01/16/2021 8:22 PM RAILROAD CAR INSPECTOR R/O COVID-19 01/25/2021 01/25/2021 01/25/2021 6:28 PM RAILROAD CAR INSPECTOR R/O COVID-19 02/01/2021 02/01/2021 02/01/2021 1:27 PM RAILROAD CAR INSPECTOR R/O COVID-19 02/08/2021 02/08/2021 02/08/2021 12:2 1 PM RAILROAD CAR INSPECTOR R/O COVID-19 02/13/2021 02/13/2021 02/13/2021 2:21 PM RAILROAD CAR INSPECTOR R/O COVID-19 02/21/2021 02/21/2021 02/21/2021 11:4 3 AM RAILROAD CAR INSPECTOR COVID-19 02/21/2021 02/21/2021 05/22/2021 12:2 1 AM [...] COVID-19 12/19/2022 12/19/2022 03/19/2023 12:2 1 AM RAILROAD CAR INSPECTOR R/O COVID-19 04/05/2024 04/05/2024 04/05/2024 1:14 PM RAILROAD CAR INSPECTOR Streptococcal disease (group A), Pharyngitis 04/05/2024 04/05/2024 04/19/2024 12:21 AM RAILROAD CAR INSPECTOR documented as of this encounter Care Teams Information Services Manager Relationship Specialty Start Date End Date Gibson Lopez MD [address] [place] [address] PCP - General Pediatrics 04/05/24 documented as of this encounter
--- OUTSIDE RECORDS SUMMARY | 2025-02-08 19:39 | XMS_ITS | Encounter Summary ---
Author Organization [facility] Address [address] [place] [address] Care Team Providers Care Cable Worker Helper Name Role Phone Gibson Lopez MD Primary Care Provider Encounter Details Date Type Department Care Team (Late st Contact Info) Description 05/24/2021 Orders Only [facility] Mobile [address] [place] [phone] Shelia Rosa, [employer] FIELD COORDINATOR [address] [place] [address] Screening for viral disease (Primary Dx) Social [...] as of this encounter Results * Employee [facility] 2019 NOVEL Coronavirus SARS-Cov-2 by NAAT (16 Hour, In-House) (06/07/2021 11:25 AM CDT) SARS-CoV-2 by NAAT Negative Negative 06/07/2021 9:00 PM CDT [facility] Swab (specimen) Both anterior nares / Unknown Non-blood Collection / Unknown 06/07/2021 11:25 AM CDT 06/07/2021 1:36 PM CDT [facility] - 06/07/2021 9:00 PM CDT This sample has been tested using [employer] [place] NAAT and has been authorized by FDA [...] MICROBIOLOGY - GENERA L ORDERABLES Final Result [address] [address] * Employee [facility] 2019 NOVEL Coronavirus SARS-Cov-2 by NAAT (16 Hour, In-House) (05/31/2021 11:03 AM CDT) Pathologist [facility] SARS-CoV-2 by NAAT Negative Negative 05/31/2021 8:43 PM CDT [facility] Swab (specimen) Both anterior nares / Unknown Non-blood Collection / Unknown 05/31/2021 11:03 AM CDT 05/31/2021 1:03 PM CDT [facility] - 05/31/2021 8:43 PM CDT This sample has been tested using [employer] [place] NAAT and has been authorized by FDA [...] MICROBIOLOGY - GENERA [place] [address] * Employee [facility] 2019 NOVEL Coronavirus SARS-Cov-2 by NAAT (16 Hour, In-House) (05/24/2021 1:36 PM CDT) SARS-CoV-2 by NAAT Negative Negative 05/24/2021 7:56 PM CDT [facility] Swab (specimen) Both anterior nares / Unknown Non-blood Collection / Unknown 05/24/2021 1:36 PM CDT 05/24/2021 1:36 PM CDT [facility] - 05/24/2021 7:56 PM CDT This sample has been tested using [employer] NAAT and has been authorized by FDA [...] MICROBIOLOGY - GENERA L ORDERABLES Final Result Performing Organization Address City/State/[facility] Co de Phone Number [address] [address] documented in this encounter Visit Diagnoses Diagnosis Screening for viral disease- Primary Special screening examination for unspecified viral disease documented in this encounter Additional Health Concerns Infection Onset Date Last Indicated Resolved Time R/O COVID-19 05/24/2021 05/24/2021 05/24/2021 7:56 PM [...] COVID-19 12/19/2022 12/19/2022 03/19/2023 12:2 1 AM BLOCK SAW OPERATOR R/O COVID-19 04/05/2024 04/05/2024 04/05/2024 1:14 PM BLOCK SAW OPERATOR Streptococcal disease (group A), Pharyngitis 04/05/2024 04/05/2024 04/19/2024 12:21 AM BLOCK SAW OPERATOR documented as of this encounter Care Teams Cable Worker Helper Relationship Specialty Start Date End Date Gibson Lopez MD [address] [place] [address] PCP - General Pediatrics 04/05/24 documented as of this encounter
--- OUTSIDE RECORDS SUMMARY | 2025-02-08 19:39 | XMS_ITS | Encounter Summary ---
Author Organization [facility] Address [address] [place] [address] Care Team Providers Care Medical Coding Technician Name Role Phone Gibson Lopez MD Primary Care Provider Encounter Details Date Type Department Care Team (Late st Contact Info) Description 05/05/2023 Orders Only [facility] Family Medicine [address] [place] [phone] Gibson Lopez MD [address] [place] [address] Anxiety Social History Tobacco Use Types Packs/Day Years Used Date Smoking Tobacco: Never Smokeless Tobacco: Never Alcohol Use Standard Drinks/Week Comments Yes 0 (1 standard drink = 0.6 oz pur e alcohol) occasionally PHQ-2 Answer Date Recorded Patient Health Questionnaire-2 Score 0 03/24/2023 Comments Unknown Sex and Gender Information Value Date Recorded Sex Assigned at Not on file Legal Sex Female 11:28 PM CDT Gender Identity Not on file Sexual Orientation Not on file documented as of this encounter Plan of Treatment Not on file documented as of this encounter Visit Diagnoses Diagnosis Anxiety Anxiety state, unspecified documented in this encounter Additional Health Concerns Infection Onset Date Last Indicated Resolved Time R/O COVID-19 04/05/2024 04/05/2024 04/05/2024 1:14 PM SQL TECH Streptococcal disease (group A), Pharyngitis 04/05/2024 04/05/2024 04/19/2024 12:21 AM SQL TECH documented as of this encounter Care Teams Medical Coding Technician Relationship Specialty Start Date End Date Gibson Lopez MD [address] [place] [address] PCP - General Pediatrics 04/05/24 documented as of this encounter
--- OUTSIDE RECORDS SUMMARY | 2025-02-08 19:39 | XMS_ITS | Clinical Summary ---
Author Organization [facility] [employer] Address [address] [place] [address] Care Team Providers Care Hatch Supervisor Name Role Phone Unavailable Primary Care Provider Unavailabl e Source Comments [facility] [employer],non-owned Affiliates and Associated Physician Practices is amultiple site organization consisting of ambulatory clinics and hospital sitesin [place], [place], [place] and [place]. This disclosure is being madepursuant to the Care Everywhere program and may not contain all information available regarding this patient. Last updated 17.[facility] [employer] Allergies No known active allergies Medications * Be aware that medications may not be up to date on this document. Alwaysverify current medications with the patient. Vit-Fe Fumarate-FA ( vitamin) 28-0.8 MG tablet Take 1 (one) tablet by mouth once daily Active albuterol HFA (Proventil; Ventolin; Proair) 108 (90 Base) MCG/ACT inhaler Inhale 2 (two) puffs by mouth every 6 hours as needed for Shortness of Breath Active oxyCODONE, immediate release, (Roxicodone) 5 MG tabletIndicatio ns: delivery delivered (HCC) Take 1 (one) tablet by mouth every 4 hours as needed 12 tablet 3 Active ibuprofen (Motrin) 600 MG tablet Take 1 (one) tablet by mouth every 6 hours as needed for Pain 15 tablet 3 Active ferrous sulfate 325 (65 FE) MG tablet Take 1 (one) tablet by mouth 2 times daily with morning and evening meal 60 tablet 3 Active Active Problems Problem Noted Date Diagnosed Date Encounter for supervision of other normal in third trimester 12/30/2022 Social History Tobacco Use Types Packs/Day Years Used Date Smoking Tobacco: Never Smokeless Tobacco: Never Tobacco Cessation:Counseling Given: Not Answered Alcohol Use Standard Drinks/Week Comments Never 0 (1 standard drink = 0.6 oz pur e alcohol) AUDIT-C Answer Date Recorded Q1: How often do you have a drink containing alcohol? Never 12/30/2022 Q2: How many drinks containi ng alcohol do you have on a typical day when you are drinking? Patient does not drink Q3: How often do you have si x or more drinks on one occasion? Never 12/30/2022 Overall Financial Resource Strain (CARDIA) Answe r Date Recorded How hard is it for you to pa y for the very basics like food, housing, medical care, and heating? Not hard at all 12/30/2022 [facility] - Occupational Stress Questionnaire Answer Date Recorded Do you feel stress - tense, restless, nervous, or anxious, or unable to sleep at night because your mind is troubled all the time - these days? Not at all 12/30/2022 Hunger Vital Sign Answer Date Recorded Within the past 12 months, y ou worried that your food would run out before you got the money to buy more. Never true 12/31/19 23 Within the past 12 months, t he food you bought just didn't last and you didn't have money to get more. Never true 12/30/2022 PRAPARE - Transportation Answer Date Re corded In the past 12 months, has l ack of transportation kept you from medical appointments or from getting medications? No 07/2022 In the past 12 months, has l ack of transportation kept you from meetings, work, or from getting things needed for daily living? No 12/30/2022 Housing Stability Vital Sign Answer Jacky e Recorded In the last 12 months, was t here a time when you were not able to pay the mortgage or rent on time? No 12/30/2022 In the last 12 months, how many places have you lived? 1 12/30/2022 In the last 12 months, was t here a time when you did not have a steady place to sleep or slept in a care home (including now)? No 12/30/2022 [place] Depression Scale Answer Date Recorded [place] Depression Scale Total 3 01/01/2023 The thought of harming myself has occurred to me . Never 01/01/2023 Comments No Sex and Gender Information Value Date Recorded Sex Assigned at Not on file Legal Sex Female 8:13 PM APPLICATION INFRASTRUCTURE ENGINEER Gender Identity Not on file Sexual Orientation Not on file Last Filed Vital Signs Vital Sign Reading Time Taken Comments Blood Pressure 118/69 01/02/2023 8:15 AM APPLICATION INFRASTRUCTURE ENGINEER Pulse 87 01/02/2023 8:15 AM APPLICATION INFRASTRUCTURE ENGINEER Temperature 36.9 C (98.4 F) 01/02/2023 8:15 AM APPLICATION INFRASTRUCTURE ENGINEER Respiratory Rate 18 01/02/2023 8:15 AM APPLICATION INFRASTRUCTURE ENGINEER Oxygen Saturation 99% 01/02/2023 8:15 AM APPLICATION INFRASTRUCTURE ENGINEER Inhaled Oxygen Concentration - - Weight 102.1 kg (225 lb) 12/30/2022 8:27 PM APPLICATION INFRASTRUCTURE ENGINEER Height 157.5 cm (5' 2) 12/30/2022 8:27 PM APPLICATION INFRASTRUCTURE ENGINEER Body Mass Index 41.15 12/30/2022 8:27 PM APPLICATION INFRASTRUCTURE ENGINEER Plan of Treatment Health Maintenance Due Date Last Done Comments HIV SCREENING 2009 HEPATITIS C SCREENING 03/04/2012 DTAP/TDAP/TD VACCINES (1 - Tdap) 2013 HEPATITIS B VACCINE (1 of 3 - 19+ 3-dose series) 2013 PAP SMEAR 2015 HPV VACCINE (1 - 3-dose SCDM series) 2021 DEPRESSION SCREENING 02/25/2024 COVID-19 VACCINE (1 - 2024-2 6 season) 2024 INFLUENZA VACCINE (#1) 2024 ZOSTER VACCINE (1 of 2) 2044 HIB VACCINE Aged Out No longer eligi ble based on patient's age to complete this topic MENINGOCOCCAL (Group B) VACC INE SHARED DECISION-MAKING Aged Out No longer eligibl e based on patient's age to complete this topic MENINGOCOCCAL GROUPS A/C/Y/W VACCINE Aged Out No longer eligible b ased on patient's age to complete this topic PNEUMOCOCCAL VACCINE Aged Out No long er eligible based on patient's age to complete this topic Insurance [facility] Advance Directives * Full Code (Latest Code Status on File) Date Activated Date Inactivated Comments 12/31/2022 3:20 PM 01/02/2023 2:06 PM * Full Code Date Activated Date Inactivated Comments 12/30/2022 8:19 PM 12/31/2022 3:20 PM
--- OUTSIDE RECORDS SUMMARY | 2025-02-08 19:39 | XMS_ITS | Encounter Summary ---
Author Organization [facility] Address [address] [place] [address] Care Team Providers Care Underwear Cutter Name Role Phone Gibson Lopez MD Primary Care Provider Encounter Details Date Type Department Care Team (Late st Contact Info) Description 12/08/2023 Orders Only [facility] Family Medicine [address] [place] [phone] Gibson Lopez MD [address] [place] [address] PTSD (post-traumatic stress disorder) Social History Tobacco [...] as of this encounter Visit Diagnoses Diagnosis PTSD (post-traumatic stress disorder) Posttraumatic stress disorder documented in this encounter Additional Health Concerns Infection Onset Date Last Indicated Resolved Time R/O COVID-19 04/05/2024 04/05/2024 04/05/2024 1:14 PM WASHER CUTTER Streptococcal disease (group A), Pharyngitis 04/05/2024 04/05/2024 04/19/2024 12:21 AM WASHER CUTTER documented as of this encounter Care Teams Underwear Cutter Relationship Specialty Start Date End Date Gibson Lopez MD [address] [place] [address] PCP - General Pediatrics 04/05/24 documented as of this encounter
--- OUTSIDE RECORDS SUMMARY | 2025-02-08 19:39 | XMS_ITS | Clinical Summary ---
Author Organization [facility] Address [address] [place] [address] Care Team Providers Care Literacy Teacher Name Role Phone Gibson Lopez MD Primary Care Provider Allergies No known active allergies Medications tretinoin (RETIN-A) 0.1 % cream 2 Active meloxicam (MOBIC) 15 mg tabletIndication s:Acute low back pain, unspecified back pain laterality, unspecified whether sciatica present Take 1 tablet (15 mg total) by mouth daily 90 tablet 3 4 026 Active Additional Information Patient not taking.Reported on 04/11/2024 orlistat (Sam) 60 mg capsuleIndicatio ns:Obesity, unspecified classification, unspecified obesity type, unspecified whether serious comorbidity present Take 1 capsule (60 mg total) by mouth 3 (three) times a day with meals 90 capsule 3 4 Active Additional Information Patient not taking.Reported on 06/21/2024 cyclobenzaprine (FLEXERIL) 10 mg tabletIndication s:Right thigh pain Take 1 tablet (10 mg total) by mouth nightly as needed for muscle spasms 30 tablet 2 4 Active Additional Information Patient not taking.Reported on 12/24/2024 ferrous sulfate 325 mg (65 mg iron) EC tabletIndication s:Iron deficiency anemia, unspecified iron deficiency anemia type,Low vitamin D level Take 1 tablet (325 mg total) by mouth daily with breakfast 90 tablet 3 4 Active Additional Information Patient not taking.Reported on 06/21/2024 busPIRone (BUSPAR) 5 mg tabletIndication s:Anxiety Take 1 tablet (5 mg total) by mouth 3 (three) times a day 90 tablet 3 4 Active Additional Information Patient not taking.Reported on 06/21/2024 LORazepam (ATIVAN) 0.5 mg tabletIndication s:Anxiety Take 1 tablet (0.5 mg total) by mouth 2 (two) times a day as needed for anxiety 30 tablet 5 Active Additional Information Patient not taking.Reported on 06/21/2024 cholecalciferol, vitamin D3, (Vitamin D3) 10 mcg (400 unit) capsuleIndicatio ns:Hypovitaminos is D Take 1 tablet by mouth daily 30 capsule 3 5 Active meclizine (ANTIVERT) 25 mg tabletIndication s:Vertigo Take 1 tablet (25 mg total) by mouth 3 (three) times a day as needed for dizziness 30 tablet 5 Active albuterol HFA 90 mcg/actuation inhalerIndicatio ns:Mild intermittent asthma without complication Inhale 1 puff every 6 (six) hours as needed for wheezing 8.5 g 3 5 Active clonazePAM (KlonoPIN) 1 mg tabletIndication s:PTSD (post-traumatic stress disorder) Take 1 tablet (1 mg total) by mouth 2 (two) times a day as needed for anxiety 30 tablet 5 Active dextroamphetamin e-amphetamine (ADDERALL) 10 mg tabletIndication s:Adult ADHD Take 1 tablet by mouth 2 (two) times a day 60 tablet 5 025 Active Problems Problem Noted Date Diagnosed Date Adult ADHD 08/26/2024 Acute low back pain 08/26/2024 Acute pain of left knee 08/26/2024 PTSD (post-traumatic stress disorder) 11/26/2023 Anxiety 08/18/2023 Obesity 05/22/2023 History of gestational hypertension 02/10/2015 Asthma 05/12/2014 Resolved Problems Problem Noted Date Diagnosed Date Resolved Date Upper respiratory tract infection 10/29/2024 12/24/2024 Syncope 04/09/2024 12/24/2024 Sebaceous cyst 11/26/2023 12/24/2024 COVID-19 02/22/2021 08/18/2023 Acne vulgaris 08/16/2016 12/24/2024 Obesity 04/25/2016 03/03/2019 Encounters Date Type Department Care Team Description 01/07/2025 Refill [facility] Medicine [address] [place] [phone] Gibson Lopez MD Adult ADHD 12/24/2024 10:45 AM CDT Office Visit [facility] [place] [address] [place] [phone] Gibson Lopez MD Adult ADHD (Primary Dx); Anxiety 12/15/2024 Orders Only [facility] [address] [place] [phone] Gibson Lopez MD Adult ADHD; PTSD (post-traumatic stress disorder) from Last 3 Months Immunizations Immunization Administration Dates Next Due DTaP 09/25/1998, 5,1994,1994 Hep B, Adolescent or Pediatric 1994,1994,1994 HiB 1994,1994,1994 Influenza (IM) Quad PF 03/24/2023 Influenza 4VAL 3YRS+ 12/01/2018 Influenza TIV (IM) 11/05/2024 Influenza, split virus, trivalent, PF 11/17/2017 MMR 09/25/1998,07/24/1995 OPV 09/25/1998, 5,1994,1994 Tdap 12/10/2022,08/18/2017 Family History Medical History Relation Name Comments Hypertension Father Diabetes Maternal Grandfather Heart disease Maternal Grandfather Hypertension Maternal Grandfather Diabetes Maternal Grandmother Heart disease Maternal Grandmother Hypertension Maternal Grandmother Hypertension Mother Stroke Mother's Sister Lung cancer Other PATERNAL GREAT AUNT Cancer Paternal Grandfather Hypertension Paternal Grandfather Hypertension Paternal Grandmother Relation Name Status Comments Father Maternal Grandfather Maternal Grandmother Mother Mother's Sister Other PATERNAL GREAT AUNT Alive Paternal Grandfather Alive Paternal Grandmother Social History Tobacco Use Types Packs/Day Years Used Date Smoking Tobacco: Never Smokeless Tobacco: Never Tobacco Cessation:Counseling Given: Yes Alcohol Use Standard Drinks/Week Comments Yes 0 (1 standard drink = 0.6 oz pur e alcohol) occasionally PHQ-2 Answer Date Recorded Patient Health Questionnaire-2 Score 0 12/24/2024 Comments No Sex and Gender Information Value Date Recorded Sex Assigned at Not on file Legal Sex Female 11:28 PM CDT Gender Identity Not on file Sexual Orientation Not on file Last Filed Vital Signs Vital Sign Reading Time Taken Comments Blood Pressure 128/80 12/24/2024 10:46 AM CDT Pulse 100 12/24/2024 10:46 AM CDT Temperature 37.1 C (98.8 F) 08/26/2024 4:22 PM CDT Respiratory Rate 18 12/24/2024 10:46 AM CDT Oxygen Saturation 18% 12/24/2024 10:46 AM CDT Inhaled Oxygen Concentration - - Weight 71.7 kg (158 lb) 12/24/2024 10:46 AM CDT Height 157.5 cm (5' 2) 12/24/2024 10:46 AM CDT Body Mass Index 28.9 12/24/2024 10:46 AM CDT Plan of Treatment Health Maintenance Due Date Last Done Comments Pap Smear 1994 Varicella Vaccines (1 of 2 - 13+ 2-dose series) 2007 AMB Pneumococcal 0-49 yrs (1 of 2 - PCV) 2013 HPV Vaccines (1 - 3-dose SCDM series) 2021 COVID-19 Vaccine (1 - 2024- season) 2024 Depression Screening 12/24/2025 12/24/2024 DTaP,Tdap,and Td Vaccines (7 - Td or Tdap) 12/10/2032 12/10/2022, 08/18/2017, 09/25/1998, Additional history exists RSV Vaccines and 60 Years or Older (1 - 1-dose 75+ series) 2069 HIB Vaccines Aged Out 1994, 06/25, 1994 No longer eligible based on patient's age to complete this topic Hepatitis B Vaccines Completed 1994, 1994, 1994 IPV Vaccines Completed 09/25/1998, 08/25, 1994, Additional history exists MMR Vaccines Completed 09/25/1998, 07/24/1995 Influenza Vaccine Completed 11/05/2024, , 03/24/2023, Additional history exists Hepatitis A Vaccines Aged Out No long er eligible based on patient's age to complete this topic Meningococcal ACWY Vaccine Aged Out N o longer eligible based on patient's age to complete this topic Meningococcal B Vaccine Aged Out No l onger eligible based on patient's age to complete this topic RSV Vaccines <20 Months Aged Out No l onger eligible based on patient's age to complete this topic Procedures Procedure Name Priority Date/Time Associated Diagnosis Comments QUANTIFERON TB-GOLD PLUS Routine 01/07/2025 2:20 PM EXTRACORPOREAL CIRCULATION SPECIALIST Encounter for pre-employment examination QUANTIFERON TB-GOLD PLUS Routine 01/07/2025 2:20 PM EXTRACORPOREAL CIRCULATION SPECIALIST Encounter for pre-employment examination from Last 3 Months Results * Quantiferon TB-Gold Plus (01/07/2025 2:20 PM EXTRACORPOREAL CIRCULATION SPECIALIST) [facility] QuantiFERON - TB Gold Plus Negative Negative 01/09/2025 6:55 AM EXTRACORPOREAL CIRCULATION SPECIALIST [facility] Comment: Quantiferon TB Gold Plus Interferon gamma release is measured for specimens from each of the four collection tubes. A qualitative result (Negative, Positive, or Indeterminate) is based on interpretation of the four values: NIL, MITOGEN minus NIL (MITOGEN-NIL), TB1 minus NIL (TB1-NIL), and TB2 minus NIL (TB2-NIL). The NIL value represents nonspecific reactivity produced by the patient specimen. The MITOGEN- NIL value serves as the positive control for the patient specimen, demonstrating successful lymphocyte activity. The TB1-NIL tube specifically detects CD4+ lymphocyte reactivity, specifically stimulated by the TB1 antigens. The TB2-NIL tube detects both CD4+ and CD8+ lymphocyte reactivity, stimulated by TB2 antigens. An overall Negative result does not completely rule out TB infection. A false-positive result in the absence of other clinical evidence of TB infection is not uncommon. While ESAT-6 and CFP-10 are absent from all BCG strains and from most known nontuberculous mycobacteria, it is possible that a positive result may be due to infection by M. kansasii, M. szulgai, or M. marinum. If such infections are suspected, alternative testing should be considered. QuantiFERON NIL 0.0377 IU/mL 6:55 AM EXTRACORPOREAL CIRCULATION SPECIALIST [facility] QuantiFERON Plus TB1 Minus NIL 0.0124 <=0.3400 IU/mL 01/09/2025 6:55 AM [facility] QuantiFERON Plus TB2 Minus NIL 0.0097 <=0.3400 IU/mL 01/09/2025 6:55 AM [facility] QuantiFERON Mitogen minus NIL 9.9623 IU/mL 01/09/2025 6:55 AM [facility] Blood Venous blood specimen / Unknown Venipuncture / Unknown 01/07/2025 2:20 PM EXTRACORPOREAL CIRCULATION SPECIALIST 01/07/2025 9:31 PM EXTRACORPOREAL CIRCULATION SPECIALIST us Torey Leong PATTERN STAMPER LAB BLOOD ORDERABLES Final Res ult [address] [address] from Last 3 Months Insurance ([facility] [employer] COMP ([facility] [employer] Care Teams Literacy Teacher Relationship Specialty Start Date End Date Gibson Lopez MD [address] [place] [id number] PCP - General Pediatrics 04/05/24
--- OUTSIDE RECORDS SUMMARY | 2025-02-08 19:39 | XMS_ITS | Encounter Summary ---
Author Organization [facility] Address [address] [place] [address] Care Team Providers Care Waterproofing Machine Operator Name Role Phone Gibson Lopez MD Primary Care Provider Encounter Details Date Type Department Care Team (Late st Contact Info) Description 06/12/2020 Orders Only [facility] Medical Group Internal Medicine and Pediatrics [address] [place] [phone] Gibson Lopez MD [address] [place] [address] Social History Tobacco Use Types [...] R/O COVID-19 12/22/2020 01/05/2021 01/05/2021 4:45 PM COMPUTER APPLICATIONS INSTRUCTOR PreProcedure Screening COVID-19 12/29/2020 12/30/2020 1:02 PM CDT R/O COVID-19 01/11/2021 01/11/2021 01/11/2021 2:55 PM COMPUTER APPLICATIONS INSTRUCTOR R/O COVID-19 01/16/2021 01/16/2021 01/16/2021 8:22 PM COMPUTER APPLICATIONS INSTRUCTOR R/O COVID-19 01/25/2021 01/25/2021 01/25/2021 6:28 PM COMPUTER APPLICATIONS INSTRUCTOR R/O COVID-19 02/01/2021 02/01/2021 02/01/2021 1:2 7 PM COMPUTER APPLICATIONS INSTRUCTOR R/O COVID-19 02/08/2021 02/08/2021 02/08/2021 12:2 1 PM COMPUTER APPLICATIONS INSTRUCTOR R/O COVID-19 02/13/2021 02/13/2021 02/13/2021 2:21 PM COMPUTER APPLICATIONS INSTRUCTOR R/O COVID-19 02/21/2021 02/21/2021 02/21/2021 11:4 3 AM COMPUTER APPLICATIONS INSTRUCTOR COVID-19 02/21/2021 02/21/2021 05/22/2021 12:2 1 AM [...] COVID-19 12/19/2022 12/19/2022 03/19/2023 12:2 1 AM COMPUTER APPLICATIONS INSTRUCTOR R/O COVID-19 04/05/2024 04/05/2024 04/05/2024 1:14 PM COMPUTER APPLICATIONS INSTRUCTOR Streptococcal disease (group A), Pharyngitis 04/05/2024 04/05/2024 04/19/2024 12:21 AM COMPUTER APPLICATIONS INSTRUCTOR documented as of this encounter Care Teams Waterproofing Machine Operator Relationship Specialty Start Date End Date Gibson Lopez MD [address] [place] [id number] PCP - General Pediatrics 04/05/24 documented as of this encounter
--- OUTSIDE RECORDS SUMMARY | 2025-02-08 19:39 | XMS_ITS | Encounter Summary ---
Author Organization [facility] Address [address] [place] [address] Care Team Providers Care Cutter Banana Room Name Role Phone Gibson Lopez MD Primary Care Provider Encounter Details Date Type Department Care Team (Late st Contact Info) Description 03/13/2022 Orders Only [facility] Family Medicine [address] [place] [address] Madonna Angela NP [address] [place] [address] Social History Tobacco Use Types [...] Infection Onset Date Last Indicated Resolved Time COVID-19 12/19/2022 12/19/2022 03/19/2023 12:2 1 AM TELECOMMUNICATIONS REPAIRER R/O COVID-19 04/05/2024 04/05/2024 04/05/2024 1:14 PM TELECOMMUNICATIONS REPAIRER Streptococcal disease (group A), Pharyngitis 04/05/2024 04/05/2024 04/19/2024 12:21 AM TELECOMMUNICATIONS REPAIRER documented as of this encounter Care Teams Cutter Banana Room Relationship Specialty Start Date End Date Gibson Lopez MD [address] [place] [address] PCP - General Pediatrics 04/05/24 documented as of this encounter
--- OUTSIDE RECORDS SUMMARY | 2025-02-08 19:39 | XMS_ITS | Encounter Summary ---
Author Organization [facility] Address [address] [place] [address] Care Team Providers Care Tape Rules Printing Machine Operator Name Role Phone Gibson Lopez MD Primary Care Provider Encounter Details Date Type Department Care Team (Late st Contact Info) Description 01/08/2024 Orders Only [facility] Family Medicine [address] [place] [address] Gibson Lopez MD [address] [place] [address] Right thigh pain (Primary Dx); Anxiety Social History Tobacco Use Types Packs/Day [...] as of this encounter Visit Diagnoses Diagnosis Right thigh pain- Primary Pain in soft tissues of limb Anxiety Anxiety state, unspecified documented in this encounter Additional Health Concerns Infection Onset Date Last Indicated Resolved Time R/O COVID-19 04/05/2024 04/05/2024 04/05/2024 1:14 PM JEWELRY CASTING MODEL MAKER APPRENTICE Streptococcal disease (group A), Pharyngitis 04/05/2024 04/05/2024 04/19/2024 12:21 AM JEWELRY CASTING MODEL MAKER APPRENTICE documented as of this encounter Care Teams Tape Rules Printing Machine Operator Relationship Specialty Start Date End Date Gibson Lopez MD [address] [place] [address] PCP - General Pediatrics 04/05/24 documented as of this encounter
--- OUTSIDE RECORDS SUMMARY | 2025-02-08 19:39 | XMS_ITS | Encounter Summary ---
Author Organization [facility] Address [address] [place] [address] Care Team Providers Care Baby Sitter Name Role Phone Gibson Lopez MD Primary Care Provider Encounter Details Date Type Department Care Team (Late st Contact Info) Description 02/03/2023 Orders Only [facility] Family Medicine [address] [place] [address] Gibson Lopez MD [address] [place] [address] Anxiety (Primary Dx) Social History Tobacco Use Types Packs/Day Years Used Date Smoking Tobacco: Never Smokeless Tobacco: Never Alcohol Use Standard Drinks/Week Comments Yes 0 (1 standard drink = 0.6 oz pur e alcohol) occasionally Comments Yes Sex and Gender Information Value Date Recorded [...] COVID-19 12/19/2022 12/19/2022 03/19/2023 12:2 1 AM CAPTION WRITER R/O COVID-19 04/05/2024 04/05/2024 04/05/2024 1:14 PM CAPTION WRITER Streptococcal disease (group A), Pharyngitis 04/05/2024 04/05/202404/1904/19/2024 12:21 AM CAPTION WRITER documented as of this encounter Care Teams Baby Sitter Relationship Specialty Start Date End Date Gibson Lopez MD [address] [place] [address] PCP - General Pediatrics 04/05/24 documented as of this encounter
[2025-02-08 19:47] VITALS: BP 131/90; PULSE 93; RESP 16; TEMP 36.7; O2SAT 100
--- NOTE | 2025-02-08 20:23 | ED_ITS ---
HPI - Female Genitourinary General Chief complaint: Urogenital-Female Stated complaint: Urinary Problem Time Seen by Provider: 02/08/25 20:20 Source: patient Mode of arrival: ambulatory Limitations: no limitations History of Present Illness HPI Narrative: 29 year old female who presents to [facility] care with complaints of 3 day history of painful urination, urinary frequency and urgency. She also has had new sexual partner and wishe to be tested for STD's for stated Peace of mind.Patient reports no genitial discharge or any itching, reports no fevers chills or any nausea vomiting or diarrhea. MD elicited complaint: UTI Onset (ago): day(s) (urinary symptoms) Location of symptoms: urethra Severity: moderate Vaginal discharge: none Urinary symptoms: Dysuria, Urgency and Frequency Related Data Home Medications ?Medication ?Instructions ?Recorded ?Confirmed ?Last Taken ?Type albuterol sulfate 90 mcg/actuation inhalation 02/08/25 Unknown History aerosol inhaler dextroamphetamine-amphetamine 10 02/08/25 Unknown Hi story mg tablet Allergies Allergy/AdvReac Type Severity Reaction Status Date / Time No Known Allergies Allergy Verified 02/08/25 19:49 Review of Systems Review of Systems: CONSTITUTIONAL: Denies fever, chills, or sweats. CARDIOVASCULAR: Denies chest pain, palpitations, or edema. RESPIRATORY: Denies cough or dyspnea. GASTROINTESTINAL: Denies abdominal pain, nausea, vomiting, or diarrhea. GENITOURINARY: Reports dysuria, frequency, urgency. Denies flank pain or hematuria. SKIN: Denies rash or itching. MUSCULOSKELETAL: Denies back pain or myalgia. Denies CVA tenderness NEUROLOGIC: Denies headache All systems reviewed & are unremarkable except as noted in HPI and below PMFSH Past Medical History Medical History (Updated 02/09/25 @ 11:45 by Avis Orozco APRN) ADHD (attention deficit hyperactivity disorder) Social History Social History (Updated 02/09/25 @ 11:35 by Avis Orozco APRN) Smoking status: Never smoker Alcohol intake: current Alcohol use details: social Substance use type: does not use Gender identity (if verbalized by the patient): Female Comments At time of signature, agree with nursing past medical, surgical, social and family history. There is no relevant family history pertinent to the presenting complaint Exam Narrative: GENERAL: Well-appearing, well-nourished, and in no acute distress. HEAD: Normocephalic, atraumatic. NECK: Supple.no lymphadenopathy CHEST: Clear to auscultation. No respiratory distress.SAO2 100% on room air HEART: Regular rate and rhythm. No murmur heard. Normal peripheral pulses. ABDOMEN: Soft, nontender to palpation. nondistended, normal active bowel sounds. No CVA tenderness, reports painful urination EXTREMITIES: Normal range of motion. No edema. SKIN: Warm, dry, no rash. NEURO: No focal deficits. Alert and oriented x3. Course Course Level of Care: Express Care Visit Vital Signs Vital signs: Vital Signs Temperature 36.7 C 02/08/25 19:47 Pulse Rate 93 02/08/25 19:47 Respiratory Rate 16 02/08/25 19:47 Blood Pressure 131/90 02/08/25 19:47 Pulse Oximetry 100 02/08/25 19:47 Oxygen Delivery Room Air 02/08/25 19:47 Temperature 36.7 C 02/08/25 19:47 Pulse Rate 93 02/08/25 19:47 Respiratory Rate 16 02/08/25 19:47 Blood Pressure 131/90 02/08/25 19:47 Pulse Oximetry 100 02/08/25 19:47 Oxygen Delivery Room Air 02/08/25 19:47 reviewed MDM MDM Narrative Medical decision making narrative: Patient with UTI symptoms with positive leukocytes noted will treat with antibiotic and recommend symptoms treatment with OTC medications. Urine for STD's sent and patient will be notified of results and treated if anything is positive. Anticipatory guidance and reasons to seek care in ED reviewed with patient with understanding verbalized. Differential Diagnosis Differential Diagnosis: Differential diagnostic considerations for female urogenital? issues include urinary tract infection, bacterial vaginosis, cervicitis, ovarian cyst, vaginitis, STI exposure, ovarian torsion, ectopic , cyst of Bartholin?s gland, cystitis, dysmenorrhea.?? Lab Data MDM Lab Attestation statement: I personally reviewed the patient's lab results. Lab results narrative: urine dip reviewed see results urine for STD's sent Gonorrhea, Chlamydia and trichomonas awaiting results Labs: Lab Results 02/08/25 Range/Units 20:02 POC Urine Color Light/pale POC Urine Clarity Clear POC Urine pH 6.0 POC Ur Specif [place] 1.010 POC Urine Protein Negative (Negative) POC Ur Glucose (UA) Negative (Negative) POC Urine Ketones Negative (Negative) POC Urine Blood 2+ (Negative) POC Urine Nitrite Negative (Negative) POC Urine Bilirubin Negative (Negative) POC Urine Urobilinogen 0.2 POC U Leukocyte Esteras 1+ (Negative) reviewed Critical Care Time Critical Care Time Critical Care Time: No Discharge Plan Discharge Clinical Impression: Urinary tract infection, Screening for STDs (sexually transmitted diseases) Patient Disposition: Home Condition: Stable Instructions: Antibiotic Form, Sexually Transmitted Diseases (ED), Urinary Tract Infection in Women (ED) Additional Instructions: Increase fluids especially cranberry juice and water Avoid caffeine and carbonated beverages Antibiotic as directed Medicine as directed--cautioned it will cause your urine to be bright orange Tylenol/ibuprofen for pain or fever Follow-up with her primary care provider if further problems or concerns Recheck if you have fever over 101, nausea and vomiting. urine for STDs sent you will be notified of test results medications will be prescribed if anything positive Patient Language: [place] Prescriptions: New amoxicillin-pot clavulanate 875-125 mg tablet 1 tablet PO Q12H Qty: 20 0RF Rx Instructions: take all doses fluconazole 150 mg tablet 150 mg PO ONCE Qty: 2 0RF Rx Instructions: as a single dose and may repeat in 72 hours if needed amoxicillin-pot clavulanate 875-125 mg tablet 1 tablet PO Q12H Qty: 20 0RF Rx Instructions: take all doses with food recommend a probiotic or eating activia yogurt No Action dextroamphetamine-amphetamine 10 mg tablet albuterol sulfate 90 mcg/actuation HFA aerosol inhaler INHALATION Follow-up/Referrals: PHYSICIAN NOT ON STAFF,NONSTAFF [Primary Care Provider] Time of Disposition: 20:33 Quality [place] Coma Scale Eyes: Open Verbal: Oriented and Alert Motor: Follows Commands [place] Coma Total Score: 15
[2025-02-08 21:01] LABS: EDUAAPPEAR Clear; EDUABILI Negative (Negative); EDUABLOOD 2+ (Negative); EDUACOLOR1 Light/Pale; EDUAGLUCOSE Negative (Negative); EDUAKETONE Negative (Negative); EDUALEUKO 1+ (Negative); EDUANITRATE Negative (Negative); EDUAPH 6.0; EDUAPROTEIN Negative (Negative); EDUASPGRAVITY 1.010; EDUAUROBILI 0.2
[2025-02-09 20:51] LABS: Trichomonas Vag PCR NOT DETECTED (NOT DETECTE)
== END 2025-02-08 20:37 | disposition home or self-care (01) ==
PROVIDERS: Emergency Provider Registered Nurse
DX: N39.0 Urinary tract infection, site not specified (principal); Z11.3 Encounter for screening for infections with a predominantly sexual mode of transmission; F90.9 Attention-deficit hyperactivity disorder, unspecified type
CPT/HCPCS: 81003; 87077; 87086; 87186; 87491; 87591; 87661; 99203; G0463